=== PATIENT | female | born 1955 | race Caucasian/White ===

== ENCOUNTER 2023-10-09 11:34 | Emergency (ER) | payer MEDICARE, MEDICAID ==
[~2023-10-09] VITALS: Ht 162.6 cm; Wt 73.4 kg
[2023-10-09 11:44] VITALS: BP 174/120
[2023-10-09 11:45] VITALS: BP 171/94
[2023-10-09 12:00] VITALS: BP 150/102
[2023-10-09 12:15] VITALS: BP 167/100
[2023-10-09] MEDS ORDERED: NAPROXEN500 MG PO (12:40)
[2023-10-09] MEDS ORDERED: PENICILLN VK500 MG PO (12:40)
[2023-10-09] MEDS ORDERED: TRAMADOL HYDROC50 M1 PO (12:41)
[2023-10-09 12:45] VITALS: BP 151/106
[2023-10-09 12:46] VITALS: BP 151/106
== END 2023-10-09 12:58 | disposition home or self-care (01) ==
LOC: ED 11:34
DX: K04.7 Periapical abscess without sinus (principal); K02.9 Dental caries, unspecified; S02.5XXA Fracture of tooth (traumatic), initial encounter for closed fracture; X58.XXXA Exposure to other specified factors, initial encounter